=== PATIENT | male | born 1945 | race Caucasian/White ===

== ENCOUNTER 2024-01-18 06:26 | Day surgery (SDC) | payer OTHER, SELFPAY ==
[2024-01-18] VITALS (10 sets, daily range): BP systolic 126–160; BP diastolic 40–72; BMI 38.5
[2024-01-18 07:26] LABS: Glucose - Point of Care 124 mg/dl (70-99)
[2024-01-18] MEDS: NORMOSOL-R 1000 IV (07:28)
[2024-01-18] MEDS: CYSVIEW KIT 100 MG INTRAVES (07:28)
[2024-01-18] MEDS: LOPRESSOR 50 MG PO (08:22)
[2024-01-18 09:50] LABS: Glucose - Point of Care 121 mg/dl (70-99)
[2024-01-18] MEDS: SYRINGE NON-PUMP 50 ML IRRIG ×2 (10:08→10:09)
[2024-01-18] MEDS: SYRINGE NON-PUMP 50 MG IRRIG ×2 (10:08→10:09)
[2024-01-18 13:00] LABS: Glucose - Point of Care 174 mg/dl (70-99)
[2024-01-18] MEDS: VALIUM INJECTION 5 MG IV (13:16)
== END 2024-01-18 14:25 | disposition home or self-care (01) ==
LOC: SDS 06:26
PROVIDERS: ATTENDING PHYSICIAN Specialist
DX: C67.2 Malignant neoplasm of lateral wall of bladder (principal)
CPT/HCPCS: 52235; C9738; 88307; 82962; A9589

== ENCOUNTER → 2024-04-03 07:43 | Outpatient (REF) | payer OTHER, SELFPAY | LOC: RAD 07:43 | PROVIDERS: ATTENDING PHYSICIAN Surgery Vascular Surgery; FAMILY PHYSICIAN Family Medicine | DX: I77.9 Disorder of arteries and arterioles, unspecified (principal); I65.23 Occlusion and stenosis of bilateral carotid arteries | CPT/HCPCS: 93880; 93922; 93925; 93978 ==

== ENCOUNTER 2024-08-29 06:19 | Day surgery (SDC) | payer OTHER, SELFPAY ==
[2024-08-22 08:35] VITALS: BMI 35.4
[2024-08-22 08:54] LABS: Hematocrit 51.8 % (39.0-52.0); Hemoglobin 16.9 g/dL (13.0-18.0); Mean Corp Hgb Conc. 32.6 g/dL (33.0-37.0); Mean Corpuscular Hgb 29.3 pg (27.0-31.0); Mean Corpuscular Volume 89.8 fL (80.0-94.0); Mean Platelet Volume 9.2 fL (7.4-10.4); Platelet Count 221 10^3/uL (130-400); Red Blood Cell Count 5.77 10^6/uL (4.70-6.10); Red Cell Dist. Width 15.2 % (11.5-14.5); White Blood Cell Count 11.9 10^3/uL (4.8-10.8)
[2024-08-22 09:36] LABS: Blood Urea Nitrogen 36 mg/dl (9-20); Calcium 9.4 mg/dl (8.4-10.2); Carbon Dioxide 28 mmol/L (22-30); Chloride 105 mmol/L (98-107); Estimated Creatinine Clearance 52 ml/min; Glucose 113 mg/dl (70-99); Potassium 4.5 mmol/L (3.5-5.1); Sodium 143 mmol/L (135-145); eGFR 51.13
[2024-08-29] VITALS (7 sets, daily range): BP systolic 117–159; BP diastolic 56–91; BMI 35.4
[2024-08-29 08:14] LABS: Glucose - Point of Care 147 mg/dl (70-99)
[2024-08-29] MEDS: CYSVIEW KIT 100 MG INTRAVES (08:15)
[2024-08-29 10:35] LABS: Glucose - Point of Care 163 mg/dl (70-99)
[2024-08-29] MEDS: Pyridium 200 MG PO (11:01)
== END 2024-08-29 12:35 | disposition home or self-care (01) ==
LOC: SDS 06:19
PROVIDERS: ATTENDING PHYSICIAN Specialist; FAMILY PHYSICIAN Family Medicine
DX: N40.0 Benign prostatic hyperplasia without lower urinary tract symptoms (principal); R31.0 Gross hematuria; Z85.51 Personal history of malignant neoplasm of bladder; Z87.891 Personal history of nicotine dependence
CPT/HCPCS: 52000; C9738; 80048; 82962; 85027; 93005; A9589

== ENCOUNTER → 2024-10-08 09:09 | Outpatient (REF) | payer OTHER, SELFPAY | LOC: HWRCS 09:09 | PROVIDERS: ATTENDING PHYSICIAN Internal Medicine; FAMILY PHYSICIAN Family Medicine | DX: I48.0 Paroxysmal atrial fibrillation (principal); I35.0 Nonrheumatic aortic (valve) stenosis | CPT/HCPCS: 93306 ==

== ENCOUNTER → 2024-10-08 13:27 | Outpatient (REF) | payer OTHER, SELFPAY | LOC: RAD 13:27 | PROVIDERS: ATTENDING PHYSICIAN Surgery Vascular Surgery; FAMILY PHYSICIAN Family Medicine | DX: I65.23 Occlusion and stenosis of bilateral carotid arteries (principal) | CPT/HCPCS: 93880 ==

== ENCOUNTER → 2025-07-02 08:26 | Outpatient (REF) | payer OTHER, SELFPAY | LOC: RCS 08:26 | PROVIDERS: ATTENDING PHYSICIAN Internal Medicine; FAMILY PHYSICIAN Family Medicine | DX: I48.19 Other persistent atrial fibrillation (principal) | CPT/HCPCS: 93225; 93226 ==

== ENCOUNTER → 2025-10-20 07:46 | Outpatient (REF) | payer OTHER, SELFPAY | LOC: RAD 07:46 | PROVIDERS: ATTENDING PHYSICIAN Surgery Vascular Surgery; FAMILY PHYSICIAN Family Medicine | DX: I73.9 Peripheral vascular disease, unspecified (principal); I65.29 Occlusion and stenosis of unspecified carotid artery | CPT/HCPCS: 93880; 93922; 93978 ==